=== PATIENT | female | born 1970 | race Caucasian/White ===

== ENCOUNTER → 2018-02-11 | Outpatient (CLI) | payer OTHER, MEDICAID ==
--- NOTE | 2018-02-11 20:27 | MRI ---
EXAM DESCRIPTION: Lumbar Spine w/o Contrast : Magnetic Resonance Imaging. CLINICAL HISTORY: LOWER BACK PAIN COMPARISON: MRI scan lumbar spine 10/06/2014. TECHNIQUE: Multiplanar, multiple standard sequences, non contrast MRI, lumbar spine. Technically difficult study due to patient motion which reflected on the images. FINDINGS: L5-S1: Disc desiccation and minimal disc space loss. Posterior midline bulge 4 mm with the disc abutting the thecal sac. Posterior elements are unremarkable. Mild canal narrowing. Bilateral moderate foraminal narrowing more on the right than the left stable since the prior study. L4-5: Disc desiccation with disc space preserved. Posterior midline 4 mm bulge with bright T2-weighted signal. Bilateral mild flavum ligament hypertrophy. Facets are unremarkable. Bilateral moderate foraminal narrowing more on the right than the left. Disc posterior bulge has increased since the prior study. L3-4: Minimal disc desiccation posteriorly. No bulging. Minimal ligament hypertrophy bilaterally with normal facets. Moderate canal narrowing. Mild bilateral foraminal narrowing. Stable since the prior study. L2-3: Normal signal in the disc with no bulging. Bilateral ligament hypertrophy normal facets. Mild canal narrowing. Mild foraminal narrowing bilaterally. Stable since the prior study. L1-2: Normal signal in the disc. Movement artifact overlying the L1 posterior vertebral body limits evaluation at this level. Minimal hypertrophy of the flavum ligaments. Normal facets. Mild canal and bilateral foraminal narrowing. Stable since the prior study. T12-L1: Normal signal in the disc and normal disc space. Posterior elements unremarkable. Canal and foramina are patent. Conus terminates at this level. Stable since the prior study. Anatomic alignment and curvature of the spine. Paravertebral soft tissues negative.. Normal marrow signal in the remaining vertebral bodies and the posterior elements. Vertebral bodies are not compressed at any level. IMPRESSION: 1. Limitations of the study due to artifact from patient motion. 2. Posterior midline bulge L5-S1 abutting the thecal sac. Mild canal narrowing. Bilateral moderate foraminal narrowing. Stable since the prior study in 2014. 2. Posterior midline L4-5 disc bulge with annular fissure. This has increased posteriorly since the prior study. Bilateral moderate foraminal narrowing. 3. Canal narrowing from L3-4 superiorly mainly due to hypertrophy of the posterior flavum ligaments. Stable since the prior study. No significant facet arthrosis at any level. Electronically signed by: Tom Fuller MD 02/11/2018 8:26 PM CDT
== END ==
LOC: MRI 13:00
PROVIDERS: ATTEND Family Medicine Sports Medicine
DX: M51.16 Intervertebral disc disorders with radiculopathy, lumbar region (principal); G89.4 Chronic pain syndrome